=== PATIENT | female | born 1990 | race Two or more races ===

== ENCOUNTER 2024-04-15 08:53 | Emergency (ER) | payer MEDICAID, SELFPAY ==
[2024-04-15 08:55] VITALS: BMI 19.3
[2024-04-15 09:02] VITALS: BP 109/72; PULSE 88; RESP 18; TEMP 36.9; O2SAT 97; BMI 19.3
--- NOTE | 2024-04-15 09:09 | XR_ITS ---
Examination: CT chest, without intravenous contrast. Sagittal and coronal 2-D reconstructions. Exam date and time: April 15, 2024 1110 hrs. Indications: Patient fell today with injury to the chest, chest pain CTDI:vol (mGy) 7.31 DLP: (mGycm) 277 Technique: Multiple 3.0 mm axial sections of the chest to been obtained. Bone and lung density settings are obtained. Sagittal and coronal 2-D reconstructions have been obtained. Low dose protocols were performed. One or more of the following dose reduction techniques were used; automated exposure control, adjustment of the mA and/or KV according to patient size, use of iterative reconstruction technique. Findings: Thoracic aorta pulmonary arteries intact No hemopericardium No pneumothorax pulmonary contusion or hemothorax The manubrium the body the sternum thoracic vertebral bodies intact Visualized liver or spleen intact no perinephric hematoma Abdominal aorta appears intact Impression: Thoracic aorta pulmonary arteries intact No hemopericardium, pneumothorax pulmonary contusion or hemothorax Osseous structures appear intact
--- NOTE | 2024-04-15 09:09 | XR_ITS ---
Examination: CT cervical spine without contrast 2-D sagittal reconstructions 2-D coronal reconstructions 3-D reconstructions. Exam date and time:April 15, 2024 0949 hrs. Indications: Patient fell today with injury to the neck, neck pain CTDI:vol (mGy) 7.47 DLP: (mGycm) 166 Technique: Multiple 2 mm axial sections of the cervical spine have been obtained. The coronal and sagittal reconstructions have been obtained. 3-D reconstructions have been obtained. Low dose protocols were performed. One or more of the following dose reduction techniques were used; automated exposure control, adjustment of the mA and/or KV according to patient size, use of iterative reconstruction technique. Findings: Axial sections demonstrate intact base of the skull. C1 exhibit satisfactory relationship to the odontoid. No acute cervical vertebral body fracture seen. Alignment posterior spinous processes satisfactory. Impression: No acute cervical fracture.
--- NOTE | 2024-04-15 09:09 | XR_ITS ---
Examination: CT brain head without contrast. 2-D sagittal coronal reconstructions Date and time of exam:April 15, 2024 0939 hrs. Indications: Patient fell today with injury to the head, head pain CTDI: vol (mGy):50.5 DLP: (mGycm):854 Technique: Multiple CT axial sections of the brain have been obtained, 5 mm slice thickness. Contrast has not been administered. 2-D sagittal, coronal reconstructions have been obtained Low dose protocols were performed. One or more of the following dose reduction techniques were used; automated exposure control, adjustment of the mA and/or KV according to patient size, use of iterative reconstruction technique. Findings: No significant ventricular enlargement. Intra-axial or extra-axial hemorrhage density is not seen. No mass effect or midline shift Basal cisterns are not remarkable. Fourth ventricle is midline. Cranial vault intact. Impression: Negative for acute hemorrhage, mass effect or midline shift
[2024-04-15] MEDS: DIAZEPAM 5 MG TABLET PO (09:17)
[2024-04-15] MEDS: ACETAMINOPHEN 500 MG TABLET 1000 MG PO (09:17)
[2024-04-15 10:43] LABS: HCG Qualitative,Urine Negative
[2024-04-15 11:54] VITALS: BP 109/77; PULSE 89; RESP 18; TEMP 36.7; O2SAT 98
--- NOTE | 2024-04-15 13:15 | EDNOTE_ITS ---
<Statement entered by Renata Castañeda MD - 04/15/24 15:20> As co-signing physician, I was present and available for consult prn. I concur with the plan and care as documented by the midlevel provider. ED Fall Injury RME/HPI General Chief Complaint: Extremity Injury, Upper Stated Complaint: Back pain, Left shoulder pain. 5 foot fall Time Seen by Provider: 04/15/24 09:04 Arrival date/time: 04/15/24 08:53 33-year-old female presents to the emergency department complains of left shoul sonido pain head and neck pain and upper back pain after a fall. Patient ports no loss of conscious or vomiting reports no abdominal pain Limitations: no limitations Related Data Home Medications ?Medication ?Instructions ?Recorded ?Confirmed vit no.95-ferrous 1 tab PO QDAY 10/15/2211/08 fumarate 28 mg-folic acid 800 mcg tablet () Previous Rx's ?Medication ?Instructions ?Recorded docusate sodium 100 mg capsule 100 mg PO QDAY #7 caps 11/20/22 (Colace) cyclobenzaprine 10 mg tablet 10 mg PO TID PRN muscle s pasm 10 04/15/24 days #30 tab-caps ibuprofen 600 mg tablet 600 mg PO Q6H #30 tabs 04/15 Allergies Allergy/AdvReac Type Severity Reaction Status Date / Time oxycodone Allergy ITCHING Verified 11/18/22 05:49 Review of Systems Review of Systems Systems Reviewed: All systems reviewed, normal except as documented Constitutional Constitutional: Reports system reviewed and no additional complaints, except as documented, Denies fever(s) and Denies headache(s) Eyes Eyes: Reports system reviewed and no additional complaints, except as documented and Denies blurry vision ENT Ears, Nose, Mouth, and Throat: Reports system reviewed and no additional complaints, except as documented, Denies headache(s), Denies nasal congestion, Denies nasal discharge and Reports neck pain Cardiovascular Cardiovascular: Reports system reviewed and no additional complaints, except as documented, Denies chest pain and Denies dyspnea Respiratory Respiratory: Reports system reviewed and no additional complaints, except as documented, Denies chest congestion, Denies cough and Denies dyspnea Gastrointestinal Gastrointestinal: Reports system reviewed and no additional complaints, except as documented and Denies abdominal pain Musculoskeletal Musculoskeletal: Reports system reviewed and no additional complaints, except as documented, Reports back pain and Reports neck pain Integumentary/Breasts Skin/Breast: Reports system reviewed and no additional complaints, except as documented and Denies rash Neurologic Neurologic: Reports system reviewed and no additional complaints, except as documented, Reports as per HPI and Denies headache(s) Past Medical History Past Medical History NEUROLOGIC: Negative Neurological Disorders or Seizures CARDIAC: Negative Cardiac Disorders or Congestive Heart Failure RESPIRATORY: Negative Chronic Obstructive Pulmonary Disease (COPD) GASTROINTESTINAL: Negative Gastrointestinal Disorders GENITOURINARY: Positive Genitourinary Disorders (UTI'S); Negative Renal Disease ENDOCRINE: Negative Endocrine Disorders, Diabetes Mellitus Type 1 or Diabetes Mellitus Type 2 HEMATOLOGIC: Positive Blood Disorders (BLEEDING) and Anemia PSYCHO/SOCIAL: Positive Recreational Drug Use OTHER HISTORY: Positive Hospitalization (LABOR); Negative Autoimmune Disease, Falls, Blood Transfusions, Anesthesia Reactions or Cancer Family History FAMILY HISTORY: Positive Family Respiratory Disorders (ASTHMA , COPD), Family Cardiac Disorders (HTN) and Family Cancer (BREAST CA); Negative Family Psychiatric Problems, Family Gastrointestinal Problems or Family Anesthesia Reaction Surgical History SURGICAL: Positive Section (X 1) Social History SMOKING STATUS: Current some day smoker SUBSTANCE USE: does not use ED Exam General Limitations: Present no limitations General appearance: Present alert and in no apparent distress Head Head exam: Present atraumatic, normocephalic and normal inspection Eye Eye exam: Present normal appearance, PERRL and EOMI; Absent conjunctival injection ENT ENT exam: Present normal exam, normal oropharynx and mucous membranes moist Neck Neck exam: Present normal inspection, full ROM, trachea midline and tenderness Chest Chest inspection: Present normal inspection and symmetric chest wall rise; Absent tenderness Respiratory Respiratory exam: Present normal lung sounds bilaterally; Absent respiratory distress Cardiovascular Cardiovascular exam: Present regular rate, normal rhythm and normal heart sounds Abdominal Exam Abdominal exam: Present soft and normal bowel sounds; Absent distention, tenderness, guarding, rebound or rigidity Extremities Exam Extremities exam: Present normal inspection and full ROM Back Exam Back exam: Present normal inspection and full ROM Neurological Exam Neurological exam: Present alert, oriented X3, CN II-XII intact, normal gait and reflexes normal; Absent motor sensory deficit Psychiatric Psychiatric exam: Present normal affect and normal mood Skin Skin exam: Present warm, dry, intact and normal color; Absent rash Course Quality Measures none Orders Category Date Time Status CT cervical spine wo con Stat Exams 04/15/24 09:[address] chest wo con Stat Exams 04/15/24 09:[address] head/brain wo con Stat Exams 04/15/24 09:09 Completed HCG Qualitative,Urine Stat Lab 04/15/24 09:30 Completed Acetaminophen Tab [Tylenol ES Tab] Med 04/15/24 09:10 Discontinued 1,000 mg PO X1 ONE Diazepam [Valium] Med 04/15/24 09:10 Discontinued 5 mg PO X1 ONE Vital Signs Vital signs: Vital Signs Temperature 98.4 F 04/15/24 09:02 Pulse Rate 88 04/15/24 09:02 Respiratory Rate 18 04/15/24 09:02 Blood Pressure 109/72 04/15/24 09:02 Pulse Oximetry (%) 97 04/15/24 09:02 Oxygen Delivery Method Room Air 04/15/24 09:02 O2 saturation 97% room air WNL Fall MDM Narrative MDM Narrative:: 33-year-old female presents to the emergency department complains of left shoulder pain head and neck pain and upper back pain after a fall. Patient ports no loss of conscious or vomiting reports no abdominal pain On exam patient well-appearing patient does not appear ill or toxic patient walks with steady gait On exam patient has pain left upper back, neck and left side of ribs Imaging obtained no acute emergent findings noted Patient discharged home in no distress to follow-up with primary care doctor in the next 24 to 48 hours and for any worsening symptoms to return to the ER immediately Patient data External records reviewed:: [facility] previous records Clinical information provided by:: patient Social determinants that could affect healthcare access:: none Patient has the following chronic illnesses:: None How is presenting disease/condition affected by chronic disease/condition?: no chronic disease Evaluation data The following diagnostics were reviewed and interpreted by me:: radiology exam(s) Lab and/or radiology exams considered but not ordered:: Radiology obtain Interpretation Summary: Reviewed by me Medications / Prescriptions Medications or Prescriptions considered but not ordered:: Given Medication administrations:: Medication Administration History Discontinued Medications Acetaminophen (Acetaminophen 500 Mg Tablet) 1,000 mg PO X1 ONE Stop: 04/15/24 09:11 Last Admin: 04/15/24 09:17 Dose: 1,000 mg Documented By: GUNNAR Diazepam (Diazepam 5 Mg Tablet) 5 mg PO X1 ONE Stop: 04/15/24 09:11 Last Admin: 04/15/24 09:17 Dose: 5 mg Documented By: BD Given Consultations Consultation(s) initiated? (list below): No Diagnosis Fall Differential Diagnosis: syncope, dislocation of shoulder region, concussion with loss of consciousness and concussion without loss of consciousness Most likely diagnosis given after review of the tests above:: Closed head injury, cervical strain Admission Indicated Admission indicated?: not indicated Admission Request Was there a request for admission?: No Disposition Plan Disposition Plan: Discharge Discharge Attestation Discharge Attestation: The patient and all family members were given an opportunity to ask questions and understood the discharge instructions. Discharge instructions specifically effects, indications for sooner follow up or return to the emergency department, and the expected course of current diagnosis. Patient condition: Stable Discharge Plan Plan Patient Disposition: HOME (Self Care) Disposition Comment: Stable Prescriptions/Referrals Prescriptions/Med Rec: New cyclobenzaprine 10 mg tablet 10 mg PO TID PRN (Reason: muscle spasm) 10 Days Qty: 30 0RF ibuprofen 600 mg tablet 600 mg PO Q6H Qty: 30 0RF No Action docusate sodium [Colace] 100 mg capsule 100 mg PO QDAY Qty: 7 0RF PNV cmb#95-ferrous fumarate-FA [] 28 mg iron- 800 mcg tablet 1 tab PO QDAY Patient Comments: TAKE 1 TABLET BY MOUTH EVERY DAY FOR 30 DAYS Referrals: Ale Monge PA-C [Primary Care Provider] - 04/17/24 Problem List Clinical Impression: Fall, Contusion of rib on left side Patient/Caregiver Discharge Instructions Education Materials: ED Contusion, Rib Additional Instructions: Please follow up with your primary care doctor in the next 24-48hrs for any worsening symptoms return here immediately Print Language: Nepali Stand Alone Forms: Shirley Award Info., Work/School Release, Patient Portal Info Letter FRANCISCO/RAKESH Supervising Physician FRANCISCO/RAKESH Supervising Physician: Dr. Castañeda
== END 2024-04-15 11:55 | disposition home or self-care (01) ==
PROVIDERS: Nurse Practitioner Primary Care; Emergency Provider Emergency Medicine; PCP Physician Assistant
DX: S20.212A Contusion of left front wall of thorax, initial encounter (principal); R51.9 Headache, unspecified; M54.2 Cervicalgia; W19.XXXA Unspecified fall, initial encounter; Z88.5 Allergy status to narcotic agent; F17.210 Nicotine dependence, cigarettes, uncomplicated
CPT/HCPCS: 70450; 71250; 72125; 81025; 99284; A9270